=== PATIENT | female | born 1970 | race Two or more races ===

== ENCOUNTER → 2024-05-24 | Outpatient (CLI) | payer MEDICAID, SELFPAY ==
--- NOTE | 2024-05-24 13:30 | XR_ITS ---
Examination: Abdomen sonogram, complete Date and time of exam: May 24, 2024 at 1340 hours INDICATIONS: Upper abdominal pain beginning 6 months ago. Technique: Multiple real-time grayscale transabdominal sonographic images of the abdomen have been obtained. Findings: Multiple gallstones Gallbladder wall 0.2 cm Common bile duct abnormally enlarged 11 mm no stones Pancreatic head 3.2 cm Aorta not enlarged Liver 15.5 cm fatty infiltration no focal liver lesions Normal hepatopedal portal venous flow Patent IVC Right kidney 12.4 x 4.9 x 8.0 cm cortex 1.7 cm Left kidney 11.1 x 5.2 x 5.9 cm cortex 2.0 cm Mild to moderate bilateral renal parenchymal scar formation 17 mm upper pole right renal cyst No hydronephrosis Spleen 8.2 cm IMPRESSION: Cholelithiasis, negative for cholecystitis Abnormally enlarged common bile duct 11 mm, recommend MRCP follow-up to exclude common bile duct stricture and/or stones
== END | disposition home or self-care (01) ==
PROVIDERS: PCP Physician Assistant; Referring Provider Physician Assistant; Visit Provider Physician Assistant
DX: K80.20 Calculus of gallbladder without cholecystitis without obstruction (principal); K83.8 Other specified diseases of biliary tract
CPT/HCPCS: 76700

== ENCOUNTER → 2024-07-13 | Outpatient (CLI) | payer MEDICAID, SELFPAY ==
--- NOTE | 2024-07-13 15:00 | XR_ITS ---
Examination: CT brain head without contrast. 2-D sagittal coronal reconstructions Date and time of exam:July 13, 2024 1503 hours INDICATIONS: Hyperprolactinemia 3 months CTDI: vol (mGy):53.1 DLP: (mGycm):1043 Technique: Multiple CT axial sections of the brain have been obtained, 5 mm slice thickness. Contrast has not been administered. 2-D sagittal, coronal reconstructions have been obtained Low dose protocols were performed. One or more of the following dose reduction techniques were used; automated exposure control, adjustment of the mA and/or KV according to patient size, use of iterative reconstruction technique. Findings: No significant ventricular enlargement. Intra-axial or extra-axial hemorrhage density is not seen. No mass effect or midline shift Basal cisterns are not remarkable. Fourth ventricle is midline. Cranial vault intact. Impression: Negative for acute hemorrhage, mass effect or midline shift As clinically warranted, brain MRI follow-up, pre and postcontrast, would best assess for pituitary microadenoma
== END | disposition home or self-care (01) ==
PROVIDERS: Referring Provider Physician Assistant; Visit Provider Physician Assistant
DX: E22.1 Hyperprolactinemia (principal)
CPT/HCPCS: 70450

== ENCOUNTER → 2024-07-22 | Outpatient (CLI) | payer MEDICAID, SELFPAY ==
--- NOTE | 2024-07-22 | XR_ITS ---
MRI abdomen, without contrast. MRCP Date and time of exam: July 22, 2024 at 0712 hrs. Indications: Chronic hepatitis C diagnosis 20 years ago, abdominal pain Technique: Multiple axial and coronal images of the abdomen have been obtained with the Siemens 1.5T MRI scanner. Images obtained included T1 weighted transverse images, T2-weighted transverse images, T2-weighted transverse images fat-suppressed, T2 weighted haste fat suppressed transverse images, T1 weighted images, in and out of phase images, T2-weighted coronal images, breath hold, T2 weighted haze coronal images as well as T2 weighted coronal thick slab images, MRCP. Findings: No focal liver lesions Cholelithiasis, gallbladder wall does not appear thickened Abnormal extra hepatic biliary tract dilatation, 14 mm with abrupt tapering of the distal common bile duct coronal image 15 No definite stones Dilatation of the pancreatic duct, 4.5 mm No pancreatic mass noted Negative for pancreatic edema No splenic lesion No hydronephrosis Aorta normal size No ascites Impression: Cholelithiasis Abnormal extra hepatic biliary tract dilatation with abrupt tapering of the distal common bile duct, differential would include malignant stricture at the ampulla Recommend ERCP follow-up
== END | disposition home or self-care (01) ==
LOC: SMRI 06:52
PROVIDERS: PCP Physician Assistant; Referring Provider Physician Assistant; Visit Provider Physician Assistant
DX: K80.20 Calculus of gallbladder without cholecystitis without obstruction (principal)
CPT/HCPCS: S8037; 74181

== ENCOUNTER 2024-09-18 09:23 | Emergency (ER) | payer MEDICAID, SELFPAY ==
[2024-09-18 09:24] VITALS: BMI 35.2
[2024-09-18 09:45] VITALS: BP 143/82; PULSE 91; RESP 18; TEMP 37.1; O2SAT 95
--- NOTE | 2024-09-18 09:45 | EDNOTE_ITS ---
ED General RME/HPI General Chief complaint: General Adult/Misc Complain Stated complaint: BUGS IN MY HAIR X 7 DAYS Time Seen by Provider: 09/18/24 09:35 Arrival date/time: 09/18/24 09:23 54-year-old female presents to the emergency department today with complaints of mites in my hair x 1 year Limitations: no limitations Related Data Previous Rx's ?Medication ?Instructions ?Recorded permethrin 1 % topical liquid See Rx Instructions .Rou te 09/18/24 .COMPLEX #118 mL Allergies Allergy/AdvReac Type Severity Reaction Status Date / Time No Known Allergies Allergy Verified 09/18/24 09:25 Review of Systems Review of Systems Systems Reviewed: All systems reviewed, normal except as documented Constitutional Constitutional: Reports system reviewed and no additional complaints, except as documented, Denies fever(s) and Denies headache(s) Eyes Eyes: Reports system reviewed and no additional complaints, except as documented and Denies blurry vision ENT Ears, Nose, Mouth, and Throat: Reports system reviewed and no additional complaints, except as documented, Denies headache(s), Denies nasal congestion and Denies nasal discharge Cardiovascular Cardiovascular: Reports system reviewed and no additional complaints, except as documented, Denies chest pain and Denies dyspnea Respiratory Respiratory: Reports system reviewed and no additional complaints, except as documented, Denies chest congestion, Denies cough and Denies dyspnea Gastrointestinal Gastrointestinal: Reports system reviewed and no additional complaints, except as documented and Denies abdominal pain Integumentary/Breasts Skin/Breast: Reports system reviewed and no additional complaints, except as documented and Denies rash Neurologic Neurologic: Reports system reviewed and no additional complaints, except as documented, Reports as per HPI and Denies headache(s) Past Medical History Social History SMOKING STATUS: Current every day smoker ED Exam General Limitations: Present no limitations General appearance: Present alert and in no apparent distress Head Head exam: Present atraumatic Eye Eye exam: Present normal appearance, PERRL and EOMI ENT ENT exam: Present normal exam, normal oropharynx and mucous membranes moist Neck Neck exam: Present normal inspection, full ROM and trachea midline Chest Chest inspection: Present normal inspection and symmetric chest wall rise Respiratory Respiratory exam: Present normal lung sounds bilaterally Cardiovascular Cardiovascular exam: Present regular rate, normal rhythm and normal heart sounds Abdominal Exam Abdominal exam: Present soft and normal bowel sounds Extremities Exam Extremities exam: Present normal inspection and full ROM Back Exam Back exam: Present normal inspection and full ROM Neurological Exam Neurological exam: Present alert, oriented X3 and CN II-XII intact Psychiatric Psychiatric exam: Present normal affect and normal mood Skin Skin exam: Present warm, dry, intact and normal color Course Quality Measures none Vital Signs Vital signs: Vital Signs Temperature 98.7 F 09/18/24 09:45 Pulse Rate 91 09/18/24 09:45 Respiratory Rate 18 09/18/24 09:45 Blood Pressure 143/82 H 09/18/24 09:45 Pulse Oximetry (%) 95 09/18/24 09:45 Oxygen Delivery Method Room Air 09/18/24 09:45 O2 saturation 95% on room air within normal limits Discharge Plan Plan Patient Disposition: HOME (Self Care) Disposition Comment: Stable Prescriptions/Referrals Prescriptions/Med Rec: New permethrin 1 % liquid See Rx Instructions .Route .COMPLEX Qty: 118 0RF Rx Instructions: Apply 1% lotion x1 leave on for 10 minutes may repeat in 7 to 9 days Problem List Clinical Impression: Infestation, mites Patient/Caregiver Discharge Instructions Additional Instructions: Please follow up with your primary care doctor in the next 24-48hrs for any worsening symptoms return here immediately Print Language: Slovenian Stand Alone Forms: Aimee Award Info., Patient Portal Info Letter PA/ARC WELDING MACHINE OPERATOR Supervising Physician PA/ELISABET Supervising Physician: Dr Nasir ACUNA Patient Acuity Low Acuity (complete MDM as needed) Narrative: 54-year-old female presents to the emergency department today with complaints of mites in my hair x 1 year On exam patient well-appearing patient is not appear ill or toxic no acute distress I do not appreciate any mites or bugs in the patient's care at this time Patient will be treated with permethrin Patient discharged home in no distress to follow-up with primary care doctor in the next 24 to 48 hours and for any worsening symptoms to return to the ER immediately Clinical Information Provided by: none Medical Records reviewed None Meds/Rx considered, not ordered describe: Rx given Labs/Rad/Tests considered, not ordered None Chronic Illness/Social Conditions which may negatively complicate care or outcome(s)-explain: None or not applicable EKG EKG not done Labs Labs: none Imaging Imaging interpretation: none or see narrative above Medication Administration(s) Rx given Diagnosis Differential Diagnosis ED Complaint MDM: Mites, psychiatric disorder, methamphetamine use Diagnoses ruled out: Mites
== END 2024-09-18 09:51 | disposition home or self-care (01) ==
LOC: SERX 09:52
PROVIDERS: Emergency Provider Emergency Medicine
DX: B88.0 Other acariasis (principal)
CPT/HCPCS: 99281

== ENCOUNTER → 2024-11-04 | Outpatient (CLI) | payer MEDICAID, SELFPAY ==
--- NOTE | 2024-11-04 14:13 | XR_ITS ---
Examination: MRI of brain without intravenous contrast. MRI brain with intravenous contrast. Date and time of exam:November 04, 2024 1459 hours INDICATIONS: Elevated prolactin I blood work laboratory examination May 2024, headaches Technique: Multiple axial and sagittal images of the brain to been obtained. Siemens high-resolution 1.52 Norah short bore scanner utilized. Sagittal sections, T1 weighted images, TR 500, TE 14, are performed. Axial sections proton-density and T2-weighted images have been obtained. Inversion recovery axial images, TR 9260, TE 111, TR 2500. Diffusion weighted images, axial sections, TR 4800, TE 128, B value 1000. Axial sections, ADC map, TR 4800, TE 128. Axial and coronal images were also obtained post 18 cc gadolinium administered intravenously. Findings:: Enlargement of the sella turcica is not present. The optic chiasm and infundibular stalk are not remarkable. There is no localized enlargement of the medulla or messi. Fourth ventricle and cerebellar tonsils appear normal in position. No subacute area of hemorrhage density is seen. Fourth ventricle is midline. Mass in the cerebellopontine angle region is not evident. 7th and 8th nerve complexes exhibit symmetry Globes are symmetrical Orbital musculature including medial lateral rectus muscles do not exhibit abnormality Increased white matter signal is not seen Effacement of the cortical sulcal markings is not identified. Mass effect upon the ventricular system is not identified. Diffusion-weighted images demonstrate no focus of restricted diffusion Contrast images demonstrate no pituitary macroadenoma or microadenoma Impression: Negative for acute hemorrhage mass effect or midline shift No pituitary macroadenoma or microadenoma
== END | disposition home or self-care (01) ==
PROVIDERS: PCP Physician Assistant; Referring Provider Physician Assistant; Visit Provider Physician Assistant
DX: E22.1 Hyperprolactinemia (principal); Z32.00 Encounter for pregnancy test, result unknown
CPT/HCPCS: 70553; A9579